=== PATIENT | female | born 1970 | race Caucasian/White ===

== ENCOUNTER 2020-01-11 13:42 | Inpatient (IN) | payer OTHER ==
[~2020-01-11] VITALS: Ht 157.5 cm; Wt 57.1 kg
--- NOTE | 2020-01-11 13:59 | NUR ---
PT ARRIVES VIA EMS, PER REPORT PT HAS BEEN HAVING INCREASING NUMBER OF FALLS RECENTLY, PT HAD FALLEN AT HOME UNKNOWN TIME/DATE AND WAS FOUND DOWN TODAY BY DAUGHTER. PT LIVES AT HOME ALONE. UNKNOWN TIME DOWN. ON ARRIVAL PT DROWSY, RESPONDING TO PAIN, ANSWERING SOME QUESTIONS APPROPRIATELY. GROSS NUERO INTACT, PUPILS EQUAL BUT SLUGGISH, PT WITH STRONG ETOH ODOR. PT ORIENTED TO SELF ONLY. LAST KNOW NORMAL TIME YESTERDAY AFTERNOON PER EMS REPORT FROM DAUGHTER. THIS RN ATTEMPTS TO CALL DAUGHTER WITH NUMBER PROVIDED TO VERIFY INFORMATION UNSUCCESSFUL AT THIS TIME WILL ATTEMPT AGAIN AT LATER TIME DUE TO PT CARE. PT IN C COLLAR, PT TO CARD MONITOR, BP, CONT PULSE OX. ERMD IN TO EVAL PT.
[2020-01-11 14:25] LABS: MEAN CORPUSCULAR HGB CONC 33.7 g/dL (32.4-35.8); MEAN CORPUSCULAR VOLUME 112.9 fL (80-100); MEAN PLATELET VOLUME 8.3 fL (7.4-10.4); PLATELET COUNT 267 x10^3/uL (130-400); RED BLOOD COUNT 3.88 x10^6/uL (3.82-5.3); RED CELL DISTRIBUTION WIDTH 12.8 % (9.6-15.2)
[2020-01-11 14:32] LABS: ALANINE AMINOTRANSFERASE 77 U/L (12-78); ALBUMIN 3.3 g/dL (3.4-5.0); ANION GAP 10 mmol/L (5-15); CALCIUM 8.1 mg/dL (8.5-10.1); CHLORIDE 108 mmol/L (98-107); CREATININE 0.42 mg/dL (0.55-1.02)
[2020-01-11 14:40] LABS: ALKALINE PHOSPHATASE 274 U/L (45-117); BILIRUBIN,TOTAL 0.8 mg/dL (0.2-1.0); TOTAL PROTEIN 7.3 g/dL (6.4-8.2)
[2020-01-11 14:41] LABS: BASOPHILS # (AUTO) 0.01 x10^3/uL (0-0.1); BASOPHILS % (AUTO) 0 % (0-1); EOSINOPHILS # (AUTO) 0.02 x10^3/uL (0-0.4); EOSINOPHILS % (AUTO) 0 % (1-7); LYMPHOCYTES % (AUTO) 27 % (22-44); MD MORPH REVIEW ONLY; MONOCYTES # (AUTO) 0.23 x10^3/uL (0.2-0.8); MONOCYTES % (AUTO) 6 % (2-9); NEUTROPHILS % (AUTO) 66 % (42-75); SALICYLATE LEVEL < 1.7 mg/dL (2.8-20.0)
[2020-01-11 14:43] LABS: <PLATELET ESTIMATE> ADEQUATE; <PLT MORPHOLOGY> NORMAL PLT MORPH
[2020-01-11 15:08] LABS: AMPHETAMINE SCREEN, URINE Negative (Negative); BARBITURATE SCREEN, URINE Negative (Negative); BENZODIAZEPINE SCREEN, URINE Negative (Negative); CANNABINOID SCREEN, URINE Negative (Negative); COCAINE SCREEN, URINE Negative (Negative); METHADONE SCREEN, URINE Negative (Negative); OPIATE SCREEN, URINE Negative (Negative)
--- NOTE | 2020-01-11 15:47 | NUR ---
PT JEFF 0.603, VALUE REPORTED TO ERMD, PT REMAINS RESPONSIVE, OCCASIONALLY SHOUTING OUT TO THE NURSE STATION "HEY" "HEY THERE". VSS, NAD NOTED
[2020-01-11] MEDS ORDERED: SODIUM CHLORIDE 0.9% 1,000 ML IV ONE (15:57)
[2020-01-11] MEDS ORDERED: SODIUM CHLORIDE FLUSH 10ML SYR IVF PRN (16:00)
--- NOTE | 2020-01-11 16:32 | NUR ---
SPOKE WITH PT MOTHER JORDON SHE WOULD LIKE TO BE CALLED TO KNOW WHERE PT IS ADMITTED [phone] PER PT MOTHER (NOT DAUGHTER) CLARIFIED PT WAS FOUND ON GROUND AT 1100 AM. SHE STATES SHE SPOKE WITH PT LAST NIGHT ON THE PHONE APPROX MIDNIGHT AND SHE "SOUNDED FINE" PT MOTHER NOT AWARE OF ETOH USE, STATES PT "USED TO DRINK"
--- NOTE | 2020-01-11 17:29 | NUR ---
POC DISCUSSED. PT AWAKE AND ALERT. PT SELF REMOVED HER IV. TIP INTACT
[2020-01-11] MEDS ORDERED: MELATONIN 5 MG TABLET PO PRN (18:30)
[2020-01-11] MEDS ORDERED: HYDROmorphone 2 MG/ML, 1ML IVPush PRN (18:30)
[2020-01-11] MEDS ORDERED: POTASSIUM CHLORIDE 40 MEQ in SODIUM CHLORIDE 0.9% 500 ML IV ONE (18:30)
[2020-01-11] MEDS: LORazepam 0.5MG TABLET PO SCH ×3 (18:30→21:05)
[2020-01-11] MEDS ORDERED: LABETALOL 5MG/ML, 20ML IVPush PRN (18:30)
[2020-01-11] MEDS ORDERED: TEMAZEPAM 15 MG CAPSULE PO PRN (18:30)
[2020-01-11] MEDS ORDERED: POLYETHYLENE GLYCOL 17 GM PACKET PO PRN (18:30)
[2020-01-11] MEDS ORDERED: LORazepam 2 MG/ML, 1ML IV PRN ×6 (18:30)
[2020-01-11] MEDS ORDERED: ONDANSETRON 2MG/ML, 2ML IVPush PRN (18:30)
[2020-01-11 19:25] LABS: FREE T4 (FREE THYROXINE) 1.13 ng/dL (0.76-1.46)
[2020-01-11] MEDS ORDERED: PLEASE ENTER ALLERGIES MC SCH (19:30)
[2020-01-11 20:20] VITALS: BP 122/81
[2020-01-11] MEDS: POTASSIUM CHLORIDE 20 MEQ, MAGNESIUM SULFATE 2 GM, THIAMINE 200 MG, MVI ADULT 10 ML, FO... IV SCH (21:04)
[2020-01-11] MEDS: ENOXAPARIN 40 MG/0.4 ML SQ SCH (21:05)
[2020-01-11] MEDS: PANTOPRAZOLE 40 MG IV IVPush SCH (21:05)
[2020-01-11 21:15] VITALS: BP 136/82
[2020-01-12 01:10] VITALS: BP 116/66
[2020-01-12 05:17] LABS: ALBUMIN 2.8 g/dL (3.4-5.0); ANION GAP 10 mmol/L (5-15); CALCIUM 7.6 mg/dL (8.5-10.1); CHLORIDE 108 mmol/L (98-107)
[2020-01-12 05:23] LABS: ALANINE AMINOTRANSFERASE 68 U/L (12-78); ALKALINE PHOSPHATASE 220 U/L (45-117); BILIRUBIN,TOTAL 0.8 mg/dL (0.2-1.0); CHOL/HDL RATIO 1.7; CHOLESTEROL, TOTAL 242 mg/dL (140-239); CREATININE 0.45 mg/dL (0.55-1.02); HDL CHOL % 60 % (28-40); HDL CHOLESTEROL (DIRECT) 145 mg/dL (40-60); LDL CHOLESTEROL,CALCULATED 82 mg/dL (54-169); LDL/HDL RATIO 0.6 (0.5-3.0); TOTAL PROTEIN 6.3 g/dL (6.4-8.2); TRIGLYCERIDES 73 mg/dL (50-200); VLDL CHOLESTEROL 15 mg/dL (0-25)
[2020-01-12 05:31] LABS: MEAN CORPUSCULAR HEMOGLOBIN 37.4 pg (27.0-34.8); MEAN CORPUSCULAR HGB CONC 33.1 g/dL (32.4-35.8); MEAN CORPUSCULAR VOLUME 112.8 fL (80-100); MEAN PLATELET VOLUME 8.6 fL (7.4-10.4); PLATELET COUNT 188 x10^3/uL (130-400); RED BLOOD COUNT 3.23 x10^6/uL (3.82-5.3); RED CELL DISTRIBUTION WIDTH 12.8 % (9.6-15.2)
[2020-01-12 06:26] LABS: BASOPHILS # (AUTO) 0.03 x10^3/uL (0-0.1); BASOPHILS % (AUTO) 1 % (0-1); EOSINOPHILS # (AUTO) 0.03 x10^3/uL (0-0.4); EOSINOPHILS % (AUTO) 1 % (1-7); LYMPHOCYTES # (AUTO) 0.72 x10^3/uL (1-3.4); LYMPHOCYTES % (AUTO) 19 % (22-44); MD SCAN; MONOCYTES # (AUTO) 0.29 x10^3/uL (0.2-0.8); MONOCYTES % (AUTO) 8 % (2-9); NEUTROPHILS # (AUTO) 2.63 x10^3/uL (1.8-6.8); NEUTROPHILS % (AUTO) 71 % (42-75)
[2020-01-12 06:44] VITALS: BP 124/87
[2020-01-12] MEDS: PANTOPRAZOLE 40 MG IV IVPush SCH (07:43)
[2020-01-12] MEDS: MULTIVITAMINS/MINERALS TABLET PO SCH (07:43)
[2020-01-12] MEDS: LORazepam 0.5MG TABLET PO SCH ×3 (07:43→20:50)
[2020-01-12] MEDS: SENNA/DOCUSATE TABLET PO SCH (07:43)
[2020-01-12] MEDS ORDERED: SODIUM PHOSPHATE 30 MMOL in SODIUM CHLORIDE 0.9% 500 ML IV ONE (08:00)
[2020-01-12] MEDS ORDERED: POTASSIUM CHLORIDE 20 MEQ TAB.ER.PRT PO ONE (08:00)
[2020-01-12] MEDS: THIAMINE 100MG TABLET PO SCH (08:03)
[2020-01-12] MEDS: FOLIC ACID 1 MG TABLET PO SCH (08:03)
[2020-01-12] MEDS: ONDANSETRON ODT 4 MG PO PRN (08:03)
[2020-01-12] MEDS: CHLORDIAZEPOXIDE 25 MG CAPSULE PO SCH ×3 (10:45→20:50)
[2020-01-12] MEDS: ACETAMINOPHEN 325 MG TABLET PO PRN ×2 (10:45→15:28)
[2020-01-12 13:33] VITALS: BP 130/90
[2020-01-12 15:51] LABS: HCG UR SG 1.019 (1.003-1.030)
[2020-01-12 15:53] LABS: MICROSCOPIC INDICATED
[2020-01-12] MEDS: ENOXAPARIN 40 MG/0.4 ML SQ SCH (19:46)
[2020-01-12] MEDS: POTASSIUM CHLORIDE 20 MEQ, MAGNESIUM SULFATE 2 GM, THIAMINE 200 MG, MVI ADULT 10 ML, FO... IV SCH (19:46)
[2020-01-12 20:52] VITALS: BP 149/93
[2020-01-13 02:51] VITALS: BP 146/69
[2020-01-13 05:06] LABS: ALBUMIN 2.9 g/dL (3.4-5.0); ANION GAP 9 mmol/L (5-15); CALCIUM 8.5 mg/dL (8.5-10.1); CHLORIDE 107 mmol/L (98-107)
[2020-01-13 05:09] LABS: ALANINE AMINOTRANSFERASE 65 U/L (12-78); ALKALINE PHOSPHATASE 229 U/L (45-117); BILIRUBIN,TOTAL 1.5 mg/dL (0.2-1.0); CREATININE 0.51 mg/dL (0.55-1.02); TOTAL PROTEIN 6.2 g/dL (6.4-8.2)
[2020-01-13] MEDS ORDERED: PANTOPRAZOLE 40MG TABLET PO SCH (06:00)
[2020-01-13] MEDS: ACETAMINOPHEN 325 MG TABLET PO PRN (06:28)
[2020-01-13] MEDS: ONDANSETRON ODT 4 MG PO PRN (06:28)
[2020-01-13 07:22] VITALS: BP 147/99
[2020-01-13] MEDS ORDERED: THIA100T67 PO (08:18)
[2020-01-13] MEDS ORDERED: CHLO10CA6 PO (08:18)
[2020-01-13] MEDS ORDERED: FOLI-17 PO (08:18)
[2020-01-13] MEDS: SENNA/DOCUSATE TABLET PO SCH (09:00)
[2020-01-13] MEDS: MULTIVITAMINS/MINERALS TABLET PO SCH (10:52)
[2020-01-13] MEDS: THIAMINE 100MG TABLET PO SCH (10:53)
[2020-01-13] MEDS: CHLORDIAZEPOXIDE 25 MG CAPSULE PO SCH (10:53)
[2020-01-13] MEDS: LORazepam 0.5MG TABLET PO SCH (10:53)
[2020-01-13] MEDS: FOLIC ACID 1 MG TABLET PO SCH (10:53)
== END 2020-01-13 12:37 | disposition home or self-care (01) | DRG 392 ==
LOC: ED 16:06 → EDIP 16:10 → 4WST 19:01 → DCLOUNGE 01-13 12:21
PROVIDERS: ADMIT Internal Medicine; ATTEND Internal Medicine Infectious Disease
DX: K29.20 Alcoholic gastritis without bleeding (principal); F10.229 Alcohol dependence with intoxication, unspecified; D75.89 Other specified diseases of blood and blood-forming organs; E86.0 Dehydration; F31.9 Bipolar disorder, unspecified; Y90.8 Blood alcohol level of 240 mg/100 ml or more; M48.02 Spinal stenosis, cervical region; R74.0 Nonspecific elevation of levels of transaminase and lactic acid dehydrogenase [LDH]; R74.8 Abnormal levels of other serum enzymes; M54.2 Cervicalgia; Z80.3 Family history of malignant neoplasm of breast; Z81.1 Family history of alcohol abuse and dependence; Z81.8 Family history of other mental and behavioral disorders; Z82.0 Family history of epilepsy and other diseases of the nervous system; Z91.14 Patient's other noncompliance with medication regimen; Z84.89 Family history of other specified conditions; Z91.041 Radiographic dye allergy status; Z79.899 Other long term (current) drug therapy
CPT/HCPCS: 36415; 99285; J7042; 70450; 71045; 72125; 80053; 80061; 80074; 80307; 81001; 81025; 82140; 82607; 83690; 83735; 84100; 84439; 84443; 85025; 87077; 87086; 87186; 93005; 96361; 96365; 96366; 96375; 96376; G0378; J1650; J2405; J3411; J3475; J3480; Q0162; C9113; J2060; J7040

== ENCOUNTER 2020-01-27 00:49 | Emergency (ER) | payer MEDICAID, OTHER ==
[~2020-01-27] VITALS: Ht 165.1 cm; Wt 80.0 kg
[~2020-01-27 00:49] MED LIST: CHLO10CA6 PO; FOLI-17 PO; THIA100T67 PO
--- NOTE | 2020-01-27 00:57 | NUR ---
PATIENT STATED THAT SHE HAS BEEN A DAILY DRINKER SINCE SHE WAS A TEENAGER.
--- NOTE | 2020-01-27 01:14 | NUR ---
PATIENT STATED THAT SHE WAS UPSET THAT HER NECKLACE WAS NOT ON. THE PATIENT DID NOT COME INTO THE ER. WHEN ASKING THE PATIENT WHERE SHE THOUGHT IT WAS, SHE STATED "[facility]".
[2020-01-27 01:15] LABS: MEAN CORPUSCULAR HEMOGLOBIN 38.1 pg (27.0-34.8); MEAN CORPUSCULAR HGB CONC 33.8 g/dL (32.4-35.8); MEAN CORPUSCULAR VOLUME 112.9 fL (80-100); MEAN PLATELET VOLUME 8.3 fL (7.4-10.4); PLATELET COUNT 173 x10^3/uL (130-400); RED BLOOD COUNT 3.55 x10^6/uL (3.82-5.3); RED CELL DISTRIBUTION WIDTH 12.8 % (9.6-15.2)
--- NOTE | 2020-01-27 01:22 | NUR ---
EMERGENCY CONTACT ALPHONSO TONG [phone]
[2020-01-27 01:24] LABS: ALANINE AMINOTRANSFERASE 58 U/L (12-78); ALBUMIN 3.2 g/dL (3.4-5.0); ANION GAP 10 mmol/L (5-15); CALCIUM 7.8 mg/dL (8.5-10.1); CHLORIDE 112 mmol/L (98-107)
[2020-01-27 01:25] LABS: SALICYLATE LEVEL < 1.7 mg/dL (2.8-20.0)
[2020-01-27 01:29] LABS: ALKALINE PHOSPHATASE 204 U/L (45-117); BILIRUBIN,TOTAL 0.4 mg/dL (0.2-1.0); CREATININE 0.47 mg/dL (0.55-1.02); TOTAL PROTEIN 7.2 g/dL (6.4-8.2)
--- NOTE | 2020-01-27 01:49 | NUR ---
STRAIGHT CATH PERFORMED, PT TOLERATED WELL. UA WALKED TO LAB.
[2020-01-27 02:09] LABS: AMPHETAMINE SCREEN, URINE Negative (Negative); BARBITURATE SCREEN, URINE Negative (Negative); BENZODIAZEPINE SCREEN, URINE Positive (Negative); CANNABINOID SCREEN, URINE Negative (Negative); COCAINE SCREEN, URINE Negative (Negative); METHADONE SCREEN, URINE Negative (Negative); OPIATE SCREEN, URINE Negative (Negative)
[2020-01-27 02:10] LABS: BASOPHILS # (AUTO) 0.03 x10^3/uL (0-0.1); BASOPHILS % (AUTO) 1 % (0-1); EOSINOPHILS # (AUTO) 0.15 x10^3/uL (0-0.4); EOSINOPHILS % (AUTO) 3 % (1-7); LYMPHOCYTES # (AUTO) 1.18 x10^3/uL (1-3.4); LYMPHOCYTES % (AUTO) 25 % (22-44); MD SCAN; MONOCYTES # (AUTO) 0.64 x10^3/uL (0.2-0.8); MONOCYTES % (AUTO) 14 % (2-9); NEUTROPHILS # (AUTO) 2.68 x10^3/uL (1.8-6.8); NEUTROPHILS % (AUTO) 57 % (42-75)
[2020-01-27 02:14] LABS: MICROSCOPIC INDICATED
[2020-01-27] MEDS ORDERED: CIPROFLOXACIN 500 MG TABLET PO ONE (03:30)
--- NOTE | 2020-01-27 03:52 | NUR ---
PT UPDATED ON POC, MONITORING IN PLACE, CALL LIGHT WITHIN REACH, PT DENIES NEEDS AT THIS TIME.
[2020-01-27] MEDS ORDERED: CIPROFLOXACIN 500 MG TABLET ONE (03:54)
--- NOTE | 2020-01-27 04:02 | NUR ---
PT MEDICATED PER MAR, MONITORING IN PLACE.
[2020-01-27 05:26] VITALS: BP 91/67
--- NOTE | 2020-01-27 05:27 | NUR ---
PT PLACED BACK ON MONITORING, NASAL CANNULA REPLACED, PT UPDATED ON POC. REQUESTING CALL TO FAMILY AT THIS TIME AFTER REFUSING TO HAVE ANYONE KNOW SHE IS HERE. *EMERGENCY CONTACT* MILENA, BOYFRIEND [phone]
--- NOTE | 2020-01-27 05:30 | NUR ---
PT ABLE TO AMBUALTE TO AND FROM BATHROOM WITH STEADY.
--- NOTE | 2020-01-27 06:53 | NUR ---
REPORT GIVEN TO GRZEGORZ OSMAN.
--- NOTE | 2020-01-27 08:11 | NUR ---
Pt ambulatory around room with steady gait, requesting dc. Pt A&O x4, able to dress self fully. Attempted to contact pt's boyfriend to come pick her up. No answer x2. Called pt's mother, reported that pt ready for dc and would be given a taxi voucher to take pt home. Pt refusing voucher, states she will contact her boyfriend and have him come pick her up. Pt ambulatory to phone, able to get in touch with her boyfriend who states he is coming to pick pt up. Pt states she would like to wait in the lobby. Pt ambulatory out of unit with steady gait.
== END 2020-01-27 08:18 | disposition home or self-care (01) ==
LOC: ED 02:17
DX: N30.00 Acute cystitis without hematuria (principal); F10.220 Alcohol dependence with intoxication, uncomplicated; R00.0 Tachycardia, unspecified; Y90.9 Presence of alcohol in blood, level not specified
CPT/HCPCS: 36415; 80053; 80307; 81001; 84703; 85025; 87077; 87086; 87186; 93005; 99284

== ENCOUNTER 2020-03-06 04:05 | Emergency (ER) | payer MEDICAID ==
[~2020-03-06] VITALS: Ht 160 cm; Wt 55.0 kg
[2020-03-06] MEDS ORDERED: ONDANSETRON 2MG/ML, 2ML IVPush ONE (05:00)
[2020-03-06] MEDS ORDERED: FAMOTIDINE 20 MG/2 ML IV ONE (05:00)
[2020-03-06] MEDS ORDERED: SODIUM CHLORIDE 0.9% 1,000ML IVBOLUS ONE (05:00)
[2020-03-06] MEDS ORDERED: FAMOTIDINE 20 MG/2 ML ONE (05:05)
[2020-03-06] MEDS ORDERED: ONDANSETRON 2MG/ML, 2ML ONE (05:05)
[2020-03-06 05:57] LABS: BASOPHILS % (AUTO) 1 % (0-1); EOSINOPHILS % (AUTO) 0 % (1-7); LYMPHOCYTES % (AUTO) 10 % (22-44); MEAN CORPUSCULAR HEMOGLOBIN 36.8 pg (27.0-34.8); MEAN PLATELET VOLUME 8.5 fL (7.4-10.4); MONOCYTES % (AUTO) 9 % (2-9); NEUTROPHILS % (AUTO) 79 % (42-75); PLATELET COUNT 155 x10^3/uL (130-400); RED BLOOD COUNT 3.53 x10^6/uL (3.82-5.3); RED CELL DISTRIBUTION WIDTH 13.6 % (9.6-15.2)
[2020-03-06 06:10] LABS: ALANINE AMINOTRANSFERASE 60 U/L (12-78); ALBUMIN 3.3 g/dL (3.4-5.0); ANION GAP 10 mmol/L (5-15); CALCIUM 8.6 mg/dL (8.5-10.1); CHLORIDE 101 mmol/L (98-107); CREATININE 0.44 mg/dL (0.55-1.02)
[2020-03-06 06:14] LABS: ALKALINE PHOSPHATASE 226 U/L (45-117); BILIRUBIN,TOTAL 1.9 mg/dL (0.2-1.0); TROPONIN I < 0.015 ng/mL (0.000-0.045)
[2020-03-06 06:22] LABS: <PLATELET ESTIMATE> ADEQUATE; <PLT MORPHOLOGY> NORMAL PLT MORPH; MD MORPH REVIEW ONLY
[2020-03-06] MEDS ORDERED: LORazepam 2 MG/ML, 1ML ONE (06:54)
[2020-03-06] MEDS ORDERED: LORazepam 2 MG/ML, 1ML IVPush ONE ×2 (07:00→07:30)
--- NOTE | 2020-03-06 07:05 | NUR ---
report from galilea botello. as
[2020-03-06] MEDS ORDERED: LORA-445 PO (07:09)
[2020-03-06 07:11] LABS: MICROSCOPIC INDICATED
--- NOTE | 2020-03-06 07:16 | NUR ---
pt has hx etoh abuse, does not readily admit to. old med rec shows librium/folic acid. given 2 mg ativan per verbal order (was 1 mg, then changed per law who was in room). pt sts abd/nausea improved. st 100s. bp stable. call rodriguez/[facility] prec[facility]. as
[2020-03-06] MEDS ORDERED: CHLORDIAZEPOXIDE 10 MG CAPSULE PO ONE (08:00)
[2020-03-06] MEDS ORDERED: FOSFOMYCIN 3 GM PACKET PO ONE (08:00)
--- NOTE | 2020-03-06 08:20 | NUR ---
right iv infiltrated, removed, warm compress applied. law aware. will order po librium. plan dc and meds for uti as
[2020-03-06] MEDS ORDERED: CHLORDIAZEPOXIDE 10 MG CAPSULE ONE (08:27)
[2020-03-06] MEDS ORDERED: FOSFOMYCIN 3 GM PACKET ONE (08:28)
[2020-03-06 08:35] VITALS: BP 130/86
--- NOTE | 2020-03-06 09:01 | NUR ---
pt is covered in bruises L arm, bilat legs. denies abuse. sts feels safe at home. offered resources on etoh withdrawal/addiction. pt declined "i already have resources at home". encouraged to f/u outpt. as
== END 2020-03-06 09:04 | disposition home or self-care (01) ==
LOC: ED 06:11
DX: N30.00 Acute cystitis without hematuria (principal); K29.20 Alcoholic gastritis without bleeding; F10.10 Alcohol abuse, uncomplicated; I48.91 Unspecified atrial fibrillation; Y90.9 Presence of alcohol in blood, level not specified
CPT/HCPCS: 36415; 74022; 80053; 81001; 83690; 84484; 85025; 87077; 87086; 93005; 96361; 96374; 96376; 99285; J2060; J2405; J3490; J7030; 87186

== ENCOUNTER 2020-04-05 19:28 | Inpatient (IN) | payer MEDICAID ==
[~2020-04-05] VITALS: Ht 160 cm; Wt 63.8 kg
[~2020-04-05 19:28] MED LIST changes: +LORA-445 PO
--- NOTE | 2020-04-05 19:40 | NUR ---
PT BIB [facility] FOR N/V, ANXIETY, FALLS AND WEAKNESS. PT HAS BEEN VOMITING SINCE 8 AM. 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 PT IS TREMULOUS ON ARIVAL AND TACHYCARDIC. PT IS A DAILY DRINKER AND HASNT HAD A DRINK SINCE YESTERDAY. PT PLACED ON MONITORS. CHILDREN'S LITERATURE PROFESSOR AT BEDSIDE
[2020-04-05] MEDS ORDERED: LORazepam 2 MG/ML, 1ML ONE ×2 (19:47→21:50)
--- NOTE | 2020-04-05 19:53 | NUR ---
FIRST CONTACT W PT, MEDICATED WITH 2 ATIVAN. ON MONITOR, CONT PULSE OX. RAILS UP, BED LOW, CALL HARDIN IN REACH. AIDET PROVIDED.
[2020-04-05] MEDS ORDERED: ONDANSETRON 2MG/ML, 2ML IVPush ONE (20:00)
[2020-04-05] MEDS ORDERED: SODIUM CHLORIDE FLUSH 10ML SYR IVF ONE (20:00)
[2020-04-05] MEDS ORDERED: MAGNESIUM SULFATE 1 GM, THIAMINE 100 MG, FOLIC ACID 1 MG, MVI ADULT 10 ML in SODIUM CHL... IV ONE (20:00)
[2020-04-05] MEDS ORDERED: LORazepam 2 MG/ML, 1ML IVPush ONE ×3 (20:00→23:00)
[2020-04-05] MEDS ORDERED: SODIUM CHLORIDE 0.9% 1,000ML IVBOLUS ONE (20:00)
[2020-04-05] MEDS ORDERED: ONDANSETRON 2MG/ML, 2ML ONE (20:02)
[2020-04-05 20:33] LABS: MEAN CORPUSCULAR HEMOGLOBIN 37.3 pg (27.0-34.8); MEAN CORPUSCULAR HGB CONC 33.9 g/dL (32.4-35.8); MEAN PLATELET VOLUME 8.7 fL (7.4-10.4); PLATELET COUNT 123 x10^3/uL (130-400); RED BLOOD COUNT 2.64 x10^6/uL (3.82-5.3); RED CELL DISTRIBUTION WIDTH 14.7 % (9.6-15.2)
[2020-04-05 20:44] LABS: ALANINE AMINOTRANSFERASE 48 U/L (12-78); ALBUMIN 2.9 g/dL (3.4-5.0); ANION GAP 14 mmol/L (5-15); CALCIUM 7.8 mg/dL (8.5-10.1); CHLORIDE 105 mmol/L (98-107); CREATININE 0.75 mg/dL (0.55-1.02)
[2020-04-05 20:47] LABS: ALKALINE PHOSPHATASE 332 U/L (45-117); BILIRUBIN,TOTAL 1.9 mg/dL (0.2-1.0); TOTAL PROTEIN 6.2 g/dL (6.4-8.2)
[2020-04-05 21:12] LABS: MD YES
[2020-04-05 21:13] LABS: ANISOCYTOSIS 1+; BAND#(MANUAL) 0.25 x10^3/uL; BANDS%(MANUAL) 5 % (0-7); LYMPHS% (MANUAL) 2 % (22-44); MONOS% (MANUAL) 4 % (2-9); OVALOCYTES 1+; POLYCHROMASIA 1+; SEG#(MANUAL) 4.45 x10^3/uL (1.8-6.8); SEGS% (MANUAL) 89 % (42-75); STOMATOCYTES 1+
--- NOTE | 2020-04-05 21:13 | NUR ---
IVF ON PUMP STARTED
[2020-04-05 21:14] LABS: <PLATELET ESTIMATE> DECREASED; <PLT MORPHOLOGY> NORMAL PLT MORPH; LARGE PLATELETS 1+
--- NOTE | 2020-04-05 21:39 | NUR ---
STRAIGHT CATH PERFORMED FOR STERILE UA
--- NOTE | 2020-04-05 21:43 | NUR ---
Patient still tremulous and techycardic in 120's with nausea, ERP notified. Addendum: 04/05/20 at 2144 by NOLAN tachycardic*
[2020-04-05] MEDS ORDERED: PROMETHAZINE 25 MG/ML, 1ML ONE (21:50)
[2020-04-05 21:58] LABS: MICROSCOPIC INDICATED
[2020-04-05] MEDS ORDERED: PROMETHAZINE 25 MG/ML, 1ML IM ONE (22:00)
--- NOTE | 2020-04-05 22:19 | NUR ---
Patient medicated per emar
--- NOTE | 2020-04-05 22:45 | NUR ---
Kim Celeste (mother): [phone] Patient does not want any medical information given to mother. Okay to update on admission or discharge
[2020-04-05] MEDS ORDERED: DEXTROSE 50%, 50ML SYRINGE ONE (22:55)
[2020-04-05] MEDS ORDERED: DEXTROSE 50%, 50ML SYRINGE IVPush ONE (23:00)
--- NOTE | 2020-04-05 23:30 | NUR ---
PATIENT STILL TREMULOUS, TACHYCARDIC IN 130'S ERP AWARE.
[2020-04-06] MEDS ORDERED: LABETALOL 5MG/ML, 20ML IVPush PRN
[2020-04-06] MEDS ORDERED: LORazepam 0.5MG TABLET PO PRN
[2020-04-06] MEDS ORDERED: PROMETHAZINE 25 MG/ML, 1ML IM PRN
[2020-04-06] MEDS ORDERED: ONDANSETRON ODT 4 MG PO PRN
[2020-04-06] MEDS ORDERED: ENOXAPARIN 40 MG/0.4 ML SQ SCH
[2020-04-06] MEDS ORDERED: CHLORDIAZEPOXIDE 10 MG CAPSULE PO SCH
[2020-04-06] MEDS ORDERED: ONDANSETRON 2MG/ML, 2ML IVPush PRN
[2020-04-06] MEDS ORDERED: LORazepam 2 MG/ML, 1ML IV PRN ×3
[2020-04-06] MEDS ORDERED: LORazepam 1MG TABLET PO PRN ×4
[2020-04-06] MEDS ORDERED: BISACODYL 10 MG SUPP PR PRN
[2020-04-06] MEDS ORDERED: LORazepam 2 MG/ML, 1ML ONE ×6 (00:01→05:18)
--- NOTE | 2020-04-06 00:10 | NUR ---
PATIENT HAVING AUDITORY AND VISUAL HALLUCINATIONS, CONTINUOUS TREMORS AT REST, ADMITTING MD NOTIFIED. THIS RN TO GIVE ADDITIONAL ATIVAN, THEN REASSESS.
[2020-04-06] MEDS: LORazepam 2 MG/ML, 1ML IV PRN ×4 (00:30→03:21)
--- NOTE | 2020-04-06 00:40 | NUR ---
PATIENT STILL CONTINUALLY TREMULOUS, STILL HAVING VISUAL AND AUDITORY HALLUCINATIONS. ALL MONITORING IN PLACE, SINUS TACHYCARDIA PRESENT AT 133 BPM.
[2020-04-06 00:52] LABS: FREE T4 (FREE THYROXINE) 0.95 ng/dL (0.76-1.46)
--- NOTE | 2020-04-06 00:56 | NUR ---
CIWA ASSESSMENT COMPLETED, NO CHANGE FROM PRIOR ASSESSMENT
[2020-04-06] MEDS ORDERED: PHENOBARBITAL SODIUM 130 MG/ML, 1ML IV ONE (01:30)
--- NOTE | 2020-04-06 01:40 | NUR ---
KALPESH AT BEDSIDE FOR RECHECK.
--- NOTE | 2020-04-06 01:40 | NUR ---
BEDSHEETS CHANGED, NO CHANGE IN CIWA SCALE AT THIS TIME, KALPESH AND SARAH AT BEDSIDE TO DISCUSS POC. PATIENT TO BE UPGRADED TO CCU, PER MD TEAM, PATIENT TO GET PHENOBARBITAL SODIUM FOR TREMORS/TACHYCARDIA/HALLUCINATIONS, AND CONTINUE WITH ATIVAN CIWA PROTOCOL DIRECTED. THIS RN WENT TO PHARMACY TO DROP OFF PHARMACY SLIP, PHARMACIST STATES EITHER PHENOBARBITAL PROTOCOL MUST BE FOLLOWED AND STOP ATIVAN CIWA PROTOCOL, OR CONTINUE WITH ATIVAN AND DO NOT GIVE PHENOBARBITAL. THIS RN EXPLAINED TO PHARMACIST CONVERSATION BETWEEN ADMITTING AND ED DOCTORS ABOUT PLAN, PHARMACIST TO CALL KALPESH ABOUT PLAN OF CARE AND GIVING PHENOBARBITAL IN ADDITION TO ATIVAN CIWA PROTOCOL.
--- NOTE | 2020-04-06 01:41 | NUR ---
IVF INFUSION STOPPED PER MD ORDERS, AND WILL SWITCH TO IV INFUSION WITH D5W FOR BGL CONTROL Addendum: 04/06/20 at 0218 by NOLAN APPROXIMATELY 450ML INFUSED OF ED ORDER FOR IV INFUSION
--- NOTE | 2020-04-06 01:47 | NUR ---
TASK RN: PT CURRENTLY RESTING ON GURNEY NO ACUTE DISTRESS NOTED AT THIS TIME PT HAS NOTICEABLE TREMORS. PT AO X SELF, CAN STATE SHE IS IN [place], [place] AND THAT IT IS M[place]. PT BELIEVES SHE IS AT HOME OR A HOTEL AND I AM HER FRIEND. PT ANSWERS DIRECT QUESTIONS OF MEDICAL HISTORY APPROPRIATELY. PT ON CONT BP, CARDIAC AND SPO2 MONITORS. NST 110'S-120'S. RR EVEEN AND UNLABORED. CALL LIGHT WITHIN REACH.
--- NOTE | 2020-04-06 02:06 | NUR ---
PATIENT MEDICATED PER EMAR FOR CIWA 23
[2020-04-06] MEDS: POTASSIUM CHLORIDE 20 MEQ, MAGNESIUM SULFATE 2 GM, THIAMINE 200 MG, MVI ADULT 10 ML, FO... IV SCH ×3 (02:16→20:32)
--- NOTE | 2020-04-06 02:31 | NUR ---
PATIENT CONTINUALLY TRYING TO GET OUT OF BED, ANXIETY AND AGITATION GETTING WORSE AT THIS TIME. A&OX4 AT THIS TIME, ABLE TO ANSWER QUESTIONS APPROPRIATELY, THEN WILL STATE "HOW'D YOU GET IN TO MY HOUSE, I NEED TO GIVE YOU A SPARE GASCA". MONITORING IN PLACE, VSS, CIWA REASSESSED AT THIS TIME
--- NOTE | 2020-04-06 03:02 | NUR ---
Report given to GRZEGORZ Howard. Plan of care discussed.
--- NOTE | 2020-04-06 03:15 | NUR ---
Assumed care of pt. Moved pt to hospital bed with previous shift RN. BS 86. Placed on tele/continuous O2 monitoring. Bed low, side rails up, call rodriguez within reach
--- NOTE | 2020-04-06 03:22 | NUR ---
CIWA 21. Medicated with 3 mg Ativan IV per order. See eMAR for additional details
[2020-04-06] MEDS ORDERED: PROMETHAZINE 25 MG/ML, 1ML ONE (03:34)
--- NOTE | 2020-04-06 03:49 | NUR ---
Increased agitation/hallucinations. Hospitalist/chargeback analyst aware. Plan to d/c ativan and start phenobarbital.
--- NOTE | 2020-04-06 03:57 | NUR ---
Pt continuing to try to get OOB. Continued worsening auditory/visual hallucinations. Unable to answer questions appropriately. Awaiting order for phenobarb
--- NOTE | 2020-04-06 04:11 | NUR ---
Hospitalist states he is dealing with critical pt and unable to put phenobarb order in at this time. Pt status unchanged
--- NOTE | 2020-04-06 05:00 | NUR ---
Pt continues to try to get OOB. Remains disoriented to person/place/situation. Incontinent of significant amount of loose stool. Changed linens. Depends applied. Bed low, side rails up, call rodriguez within reach
[2020-04-06 05:15] LABS: RED BLOOD COUNT 2.88 x10^6/uL (3.82-5.3)
--- NOTE | 2020-04-06 05:23 | NUR ---
BRANDIE 31. Hospitalist aware. Medicated with 4 mg Ativan per order and conversation with hospitalist. Provider aware of amount of ativan given
[2020-04-06 05:24] LABS: MEAN CORPUSCULAR HEMOGLOBIN 36.9 pg (27.0-34.8); MEAN CORPUSCULAR HGB CONC 33.4 g/dL (32.4-35.8); MEAN PLATELET VOLUME 8.6 fL (7.4-10.4); PLATELET COUNT 114 x10^3/uL (130-400); RED CELL DISTRIBUTION WIDTH 15.6 % (9.6-15.2)
[2020-04-06 05:29] LABS: ALANINE AMINOTRANSFERASE 49 U/L (12-78); ANION GAP 8 mmol/L (5-15); CALCIUM 8.3 mg/dL (8.5-10.1); CHLORIDE 108 mmol/L (98-107); CHOLESTEROL, TOTAL 227 mg/dL (140-239); CREATININE 0.55 mg/dL (0.55-1.02)
--- NOTE | 2020-04-06 05:30 | NUR ---
BG 76. Provider aware. Verbal order to increase rate of banana bag with dextrose to 150 mL/hr
[2020-04-06 05:31] LABS: ALKALINE PHOSPHATASE 349 U/L (45-117); BILIRUBIN,TOTAL 1.5 mg/dL (0.2-1.0); CHOL/HDL RATIO 1.6; HDL CHOL % 64 % (28-40); HDL CHOLESTEROL (DIRECT) 146 mg/dL (40-60); LDL CHOLESTEROL,CALCULATED 68 mg/dL (54-169); LDL/HDL RATIO 0.5 (0.5-3.0); TOTAL PROTEIN 6.3 g/dL (6.4-8.2); TRIGLYCERIDES 67 mg/dL (50-200); VLDL CHOLESTEROL 13 mg/dL (0-25)
[2020-04-06 06:05] LABS: MD YES
[2020-04-06 06:09] LABS: ANISOCYTOSIS 1+; EOS#(MANUAL) 0.04 x10^3/uL (0.0-0.4); EOS% (MANUAL) 1 % (1-7); LYMPH#(MANUAL) 0.49 x10^3/uL (1-3.4); LYMPHS% (MANUAL) 13 % (22-44); MONOS#(MANUAL) 0.23 x10^3/uL (0.3-2.7); MONOS% (MANUAL) 6 % (2-9); OVALOCYTES 1+; POLYCHROMASIA 1+; SEG#(MANUAL) 3.04 x10^3/uL (1.8-6.8); SEGS% (MANUAL) 80 % (42-75)
[2020-04-06 06:10] LABS: <PLATELET ESTIMATE> DECREASED; <PLT MORPHOLOGY> NORMAL PLT MORPH
[2020-04-06] MEDS ORDERED: PHENOBARBITAL SODIUM IV ONE (06:30)
[2020-04-06] MEDS ORDERED: SODIUM CHLORIDE 0.9% IV ONE (06:30)
[2020-04-06] MEDS ORDERED: PHENOBARBITAL ETOH DETOX PER PHARMACY MC PRN (06:30)
[2020-04-06 06:38] LABS: MICROSCOPIC INDICATED
[2020-04-06] MEDS ORDERED: ZIPRASIDONE 20 MG INJ IM ONE ×3 (06:38→14:51)
--- NOTE | 2020-04-06 06:40 | NUR ---
Conversation with hospitalist r/t care overnight. Hospitalist aware of amount of ativan given with minimal effect. Plan for phenobarbital. Mental status unchanged. Continues to have frequent auditory/visual hallucinations. Continues to try to get OOB frequently. Remains on continuous tele/end tidal monitoring. Bed alarm on, bed low, side rails up
[2020-04-06] MEDS: ZIPRASIDONE 20 MG INJ IM PRN ×3 (06:55→22:19)
--- NOTE | 2020-04-06 07:02 | NUR ---
REPORT FROM DUGLAS, BEDSIDE. PT RESTING, VSS. BED ALARM IN PLACE,
--- NOTE | 2020-04-06 08:11 | NUR ---
PT RESTING, VSS
--- NOTE | 2020-04-06 08:29 | NUR ---
cardiac rhythm strip printed and placed on chart.
[2020-04-06] MEDS ORDERED: MORPHINE SULFATE 4 MG/ML, 1ML ONE ×2 (08:54→11:06)
[2020-04-06] MEDS: morphine SULFATE 10 MG/ML, 1ML IVPush PRN ×2 (08:56→11:08)
--- NOTE | 2020-04-06 09:01 | NUR ---
PT BECOMING AGITATED, TREMULOUS, TACHY 140-150S. DISCUSSED W MD CASTELLON POC. OK TO GIVE GEODON 10 MG AND MORPHINE.
--- NOTE | 2020-04-06 09:25 | NUR ---
PT IS LESS RESTLESS AND TREMULOUS. PT SLEEPING, VSS
[2020-04-06] MEDS ORDERED: MAGNESIUM SULFATE PMX 4GM/100M 100 ML IVPB ONE (11:00)
[2020-04-06] MEDS ORDERED: THIAMINE 200 MG in SODIUM CHLORIDE 0.9% 50 ML IV SCH (11:00)
[2020-04-06] MEDS ORDERED: CEFTRIAXONE PMX 1GM/50ML 50 ML ONE (11:00)
[2020-04-06] MEDS ORDERED: POTASSIUM CHLORIDE 20 MEQ in SODIUM CHLORIDE 0.9% 250 ML IV ONE (11:00)
[2020-04-06] MEDS ORDERED: MAGNESIUM SULFATE PMX 4GM/100M 100 ML ONE (11:01)
[2020-04-06] MEDS ORDERED: ENOXAPARIN 40 MG/0.4 ML ONE (11:02)
[2020-04-06] MEDS: ENOXAPARIN 40 MG/0.4 ML SQ SCH (11:08)
[2020-04-06] MEDS: CEFTRIAXONE PMX 1GM/50ML 50 ML IV SCH (11:09)
[2020-04-06 12:20] LABS: INTERNATIONAL NORMALIZED RATIO 1.22 (0.93-1.1); PROTHROMBIN TIME 12.9 Seconds (9.6-11.5)
--- NOTE | 2020-04-06 12:21 | NUR ---
PT REPOSITIONED, NEW LINENS. PT CONFUSED, AROUSES EASILY, TREMORS DECREASED WHILE SLEEPING. VSS.
--- NOTE | 2020-04-06 12:39 | NUR ---
cardiac rhythm strip printed and placed on chart
[2020-04-06] MEDS ORDERED: POTASSIUM PHOSPHATE 22 MEQ in SODIUM CHLORIDE 0.9% 500 ML IV ONE (13:00)
--- NOTE | 2020-04-06 13:34 | NUR ---
REPORT RECEIVED FROM GRZEGORZ MARIA. ASSUMED CARE. PT RESTING IN [facility]. REMAINS TACHYCARDIC. NAD.
--- NOTE | 2020-04-06 13:39 | NUR ---
PT TRIED TO GET UP OUT OF BED. TOLD PT TO TRY AND RELAX AND REST IN THE BED. PT SAID "OK"
[2020-04-06] MEDS: PHENOBARBITAL SODIUM 65 MG/ML, 1ML IM SCH (13:55)
[2020-04-06] MEDS ORDERED: LABETALOL 20 MG/4 ML ONE (15:42)
--- NOTE | 2020-04-06 15:48 | NUR ---
PT DIASTOLIC BP HIGH. PT MEDICATED PER JUL.
[2020-04-06 17:53] VITALS: BP 136/96
[2020-04-06] MEDS: OXYcodone IR 5MG TABLET PO PRN (20:04)
[2020-04-07] MEDS: PHENOBARBITAL SODIUM 65 MG/ML, 1ML IM SCH ×2 (01:41→15:30)
[2020-04-07] MEDS: ZIPRASIDONE 20 MG INJ IM PRN (02:34)
[2020-04-07 04:00] VITALS: BP 146/93
[2020-04-07 04:36] LABS: BASOPHILS % (AUTO) 1 % (0-1); EOSINOPHILS % (AUTO) 2 % (1-7); LYMPHOCYTES % (AUTO) 12 % (22-44); MEAN CORPUSCULAR HEMOGLOBIN 36.9 pg (27.0-34.8); MEAN CORPUSCULAR HGB CONC 33.1 g/dL (32.4-35.8); MEAN PLATELET VOLUME 9.5 fL (7.4-10.4); MONOCYTES % (AUTO) 8 % (2-9); NEUTROPHILS % (AUTO) 77 % (42-75); PLATELET COUNT 96 x10^3/uL (130-400); RED BLOOD COUNT 2.84 x10^6/uL (3.82-5.3); RED CELL DISTRIBUTION WIDTH 15.4 % (9.6-15.2)
[2020-04-07 04:41] LABS: MD NO
[2020-04-07 04:49] LABS: ANION GAP 6 mmol/L (5-15); CALCIUM 8.1 mg/dL (8.5-10.1); CHLORIDE 114 mmol/L (98-107)
[2020-04-07 04:51] LABS: CREATININE 0.48 mg/dL (0.55-1.02)
[2020-04-07] MEDS ORDERED: POTASSIUM CHLORIDE 20 MEQ TAB.ER.PRT PO ONE (07:00)
[2020-04-07 08:00] VITALS: BP 134/93
[2020-04-07] MEDS: ENOXAPARIN 40 MG/0.4 ML SQ SCH (09:34)
[2020-04-07] MEDS ORDERED: PHENOBARBITAL ETOH DETOX PER PHARMACY MC PRN (09:59)
[2020-04-07] MEDS: QUETIAPINE 25MG TABLET PO SCH ×2 (10:11→21:37)
[2020-04-07] MEDS ORDERED: QUETIAPINE 25MG TABLET PO SCH (10:30)
[2020-04-07 10:50] VITALS: BP 145/97
[2020-04-07] MEDS: CEFTRIAXONE PMX 1GM/50ML 50 ML IV SCH (10:59)
[2020-04-07] MEDS: POTASSIUM CHLORIDE 20 MEQ, MAGNESIUM SULFATE 2 GM, THIAMINE 200 MG, MVI ADULT 10 ML, FO... IV SCH ×2 (11:44→22:16)
[2020-04-07 14:04] VITALS: BP 192/90
[2020-04-07 21:00] VITALS: BP 132/89
[2020-04-08 01:02] VITALS: BP 153/107
[2020-04-08] MEDS: ZIPRASIDONE 20 MG INJ IM PRN ×2 (01:45→22:43)
[2020-04-08] MEDS: PHENOBARBITAL SODIUM 65 MG/ML, 1ML IM SCH (03:17)
[2020-04-08 07:27] VITALS: BP 158/103
[2020-04-08] MEDS: ENOXAPARIN 40 MG/0.4 ML SQ SCH (10:00)
[2020-04-08] MEDS: QUETIAPINE 25MG TABLET PO SCH ×2 (10:06→20:02)
[2020-04-08] MEDS: POTASSIUM CHLORIDE 20 MEQ in LACTATED RINGERS 1,000 ML IV SCH ×2 (10:31→20:03)
[2020-04-08] MEDS: CEFTRIAXONE PMX 1GM/50ML 50 ML IV SCH (11:22)
[2020-04-08 13:23] VITALS: BP 146/97
[2020-04-08] MEDS: PHENOBARBITAL 20 MG/5 ML ORAL SOL PO SCH (15:18)
[2020-04-08] MEDS: LORazepam 2 MG/ML, 1ML IVPush PRN ×2 (18:06→21:27)
[2020-04-08 19:29] VITALS: BP 114/80
[2020-04-08] MEDS: THIAMINE 100MG TABLET PO SCH (20:03)
[2020-04-08 22:41] VITALS: BP 155/110
[2020-04-08] MEDS: OXYcodone IR 5MG TABLET PO PRN (22:42)
[2020-04-09] MEDS: LORazepam 2 MG/ML, 1ML IVPush PRN ×2 (00:19→05:23)
[2020-04-09 02:12] VITALS: BP 141/99
[2020-04-09] MEDS: PHENOBARBITAL 20 MG/5 ML ORAL SOL PO SCH ×2 (02:55→15:19)
[2020-04-09 05:20] VITALS: BP 148/105
[2020-04-09] MEDS: POTASSIUM CHLORIDE 20 MEQ in LACTATED RINGERS 1,000 ML IV SCH ×3 (05:34→20:11)
[2020-04-09 06:06] LABS: BASOPHILS % (AUTO) 1 % (0-1); EOSINOPHILS % (AUTO) 2 % (1-7); LYMPHOCYTES % (AUTO) 11 % (22-44); MEAN CORPUSCULAR HEMOGLOBIN 37.5 pg (27.0-34.8); MEAN CORPUSCULAR HGB CONC 33.4 g/dL (32.4-35.8); MEAN PLATELET VOLUME 10.1 fL (7.4-10.4); MONOCYTES % (AUTO) 13 % (2-9); NEUTROPHILS % (AUTO) 73 % (42-75); PLATELET COUNT 84 x10^3/uL (130-400); RED BLOOD COUNT 2.59 x10^6/uL (3.82-5.3)
[2020-04-09 06:09] LABS: MD NO
[2020-04-09 06:19] LABS: ANION GAP 8 mmol/L (5-15); CALCIUM 8.5 mg/dL (8.5-10.1); CHLORIDE 110 mmol/L (98-107); CREATININE 0.49 mg/dL (0.55-1.02)
[2020-04-09 06:20] LABS: ALANINE AMINOTRANSFERASE 35 U/L (12-78); ALBUMIN 2.7 g/dL (3.4-5.0)
[2020-04-09 06:22] LABS: ALKALINE PHOSPHATASE 270 U/L (45-117); BILIRUBIN,TOTAL 0.9 mg/dL (0.2-1.0); TOTAL PROTEIN 6.2 g/dL (6.4-8.2)
[2020-04-09] MEDS: ENOXAPARIN 40 MG/0.4 ML SQ SCH (10:00)
[2020-04-09 10:10] VITALS: BP 137/90
[2020-04-09] MEDS: POLYETHYLENE GLYCOL 17 GM PACKET PO PRN (10:24)
[2020-04-09] MEDS: QUETIAPINE 25MG TABLET PO SCH ×2 (10:24→20:12)
[2020-04-09] MEDS: OXYcodone IR 5MG TABLET PO PRN ×2 (10:24→17:27)
[2020-04-09] MEDS: FOLIC ACID 1 MG TABLET PO SCH (10:25)
[2020-04-09] MEDS: THIAMINE 100MG TABLET PO SCH ×2 (10:25→20:12)
[2020-04-09] MEDS: CEFTRIAXONE PMX 1GM/50ML 50 ML IV SCH (11:00)
[2020-04-09 15:23] VITALS: BP 131/90
[2020-04-09] MEDS: DOCUSATE 100 MG CAPSULE PO PRN (17:27)
[2020-04-09 19:22] VITALS: BP 129/95
[2020-04-10 00:40] VITALS: BP 135/90
[2020-04-10] MEDS: OXYcodone IR 5MG TABLET PO PRN ×3 (00:43→14:12)
[2020-04-10] MEDS: LORazepam 2 MG/ML, 1ML IVPush PRN ×3 (00:43→23:26)
[2020-04-10 01:14] VITALS: BP 136/88
[2020-04-10] MEDS: PHENOBARBITAL 20 MG/5 ML ORAL SOL PO SCH ×2 (01:33→14:10)
[2020-04-10 05:17] LABS: BASOPHILS % (AUTO) 1 % (0-1); EOSINOPHILS % (AUTO) 3 % (1-7); LYMPHOCYTES % (AUTO) 12 % (22-44); MEAN CORPUSCULAR HEMOGLOBIN 37.2 pg (27.0-34.8); MEAN CORPUSCULAR HGB CONC 33.2 g/dL (32.4-35.8); MEAN PLATELET VOLUME 10.1 fL (7.4-10.4); MONOCYTES % (AUTO) 18 % (2-9); NEUTROPHILS % (AUTO) 67 % (42-75); PLATELET COUNT 91 x10^3/uL (130-400); RED CELL DISTRIBUTION WIDTH 15.6 % (9.6-15.2)
[2020-04-10 05:26] LABS: ANION GAP 8 mmol/L (5-15); CALCIUM 8.5 mg/dL (8.5-10.1); CHLORIDE 111 mmol/L (98-107)
[2020-04-10 05:28] LABS: CREATININE 0.56 mg/dL (0.55-1.02)
[2020-04-10 05:29] LABS: MD NO
[2020-04-10 05:37] VITALS: BP 132/91
[2020-04-10] MEDS: POTASSIUM CHLORIDE 20 MEQ in LACTATED RINGERS 1,000 ML IV SCH (05:38)
[2020-04-10] MEDS: DOCUSATE 100 MG CAPSULE PO PRN (05:38)
[2020-04-10] MEDS: LACTATED RINGERS 1,000 ML IV SCH (06:45)
[2020-04-10 08:16] VITALS: BP 139/95
[2020-04-10] MEDS: QUETIAPINE 25MG TABLET PO SCH ×2 (08:52→20:42)
[2020-04-10] MEDS: FOLIC ACID 1 MG TABLET PO SCH (08:52)
[2020-04-10] MEDS: ENOXAPARIN 40 MG/0.4 ML SQ SCH (08:53)
[2020-04-10] MEDS: THIAMINE 100MG TABLET PO SCH ×2 (08:53→20:42)
[2020-04-10] MEDS: CEFTRIAXONE PMX 1GM/50ML 50 ML IV SCH (12:00)
[2020-04-10] MEDS: METOPROLOL SUCCINATE 25 MG TAB.ER.24H PO SCH ×2 (12:03→20:41)
[2020-04-10] MEDS ORDERED: GADOTERATE 7.5 MMOL/15 ML VIAL ONE (13:17)
[2020-04-10] MEDS: OMEPRAZOLE 20 MG CAPSULE.DR PO SCH (14:12)
[2020-04-10 15:29] VITALS: BP 136/90
[2020-04-10] MEDS: POLYETHYLENE GLYCOL 17 GM PACKET PO PRN (17:47)
[2020-04-10 18:49] VITALS: BP 135/97
[2020-04-11] MEDS: LACTATED RINGERS 1,000 ML IV SCH (01:06)
[2020-04-11] MEDS: PHENOBARBITAL 20 MG/5 ML ORAL SOL PO SCH (01:07)
[2020-04-11 01:10] VITALS: BP 139/95
[2020-04-11] MEDS: OXYcodone IR 5MG TABLET PO PRN (03:58)
[2020-04-11] MEDS: OMEPRAZOLE 20 MG CAPSULE.DR PO SCH ×2 (05:28→16:20)
[2020-04-11 06:02] LABS: BASOPHILS % (AUTO) 1 % (0-1); EOSINOPHILS % (AUTO) 3 % (1-7); LYMPHOCYTES % (AUTO) 16 % (22-44); MEAN CORPUSCULAR HEMOGLOBIN 37.3 pg (27.0-34.8); MEAN CORPUSCULAR HGB CONC 33.1 g/dL (32.4-35.8); MEAN PLATELET VOLUME 10.1 fL (7.4-10.4); MONOCYTES % (AUTO) 22 % (2-9); NEUTROPHILS % (AUTO) 58 % (42-75); PLATELET COUNT 106 x10^3/uL (130-400); RED BLOOD COUNT 2.27 x10^6/uL (3.82-5.3); RED CELL DISTRIBUTION WIDTH 15.7 % (9.6-15.2)
[2020-04-11 06:30] LABS: CHLORIDE 108 mmol/L (98-107)
[2020-04-11 06:32] LABS: MD NO
[2020-04-11 06:34] LABS: ANION GAP 8 mmol/L (5-15); CALCIUM 8.7 mg/dL (8.5-10.1); CREATININE 0.65 mg/dL (0.55-1.02)
[2020-04-11 07:14] VITALS: BP 132/90
[2020-04-11] MEDS: FOLIC ACID 1 MG TABLET PO SCH (09:57)
[2020-04-11] MEDS: THIAMINE 100MG TABLET PO SCH (09:57)
[2020-04-11] MEDS: METOPROLOL SUCCINATE 25 MG TAB.ER.24H PO SCH (09:58)
[2020-04-11] MEDS: ENOXAPARIN 40 MG/0.4 ML SQ SCH (09:58)
[2020-04-11] MEDS: QUETIAPINE 25MG TABLET PO SCH (09:58)
[2020-04-11] MEDS ORDERED: METO25TA91 PO (13:35)
[2020-04-11] MEDS ORDERED: LORA-446 PO (13:36)
[2020-04-11] MEDS ORDERED: PHENOBARBITAL 20 MG/5 ML ORAL SOL PO SCH (14:00)
[2020-04-11 14:10] VITALS: BP 107/76
== END 2020-04-11 17:55 | disposition home or self-care (01) | DRG 432 ==
LOC: ED 21:04 → EDIP 04-06 00:02 → CCU 04-06 17:51 → 5SO 04-07 10:17
PROVIDERS: ADMIT Internal Medicine; ATTEND Internal Medicine
DX: K70.10 Alcoholic hepatitis without ascites (principal); E43 Unspecified severe protein-calorie malnutrition; D61.818 Other pancytopenia; F10.239 Alcohol dependence with withdrawal, unspecified; D53.9 Nutritional anemia, unspecified; E16.2 Hypoglycemia, unspecified; Z68.24 Body mass index [BMI] 24.0-24.9, adult; E83.42 Hypomagnesemia; E86.0 Dehydration; F31.9 Bipolar disorder, unspecified; F41.9 Anxiety disorder, unspecified; J32.9 Chronic sinusitis, unspecified; K76.0 Fatty (change of) liver, not elsewhere classified; M48.04 Spinal stenosis, thoracic region; M50.30 Other cervical disc degeneration, unspecified cervical region; S09.90XA Unspecified injury of head, initial encounter; W18.39XA Other fall on same level, initial encounter; Y93.89 Activity, other specified; Y92.89 Other specified places as the place of occurrence of the external cause; Y99.8 Other external cause status; Z80.3 Family history of malignant neoplasm of breast; Z91.14 Patient's other noncompliance with medication regimen; Z81.8 Family history of other mental and behavioral disorders
CPT/HCPCS: 36415; 73590; 83036; J7042; 70450; 70486; 71045; 72125; 72128; 72131; 72157; 76705; 80048; 80053; 80061; 80307; 81001; 82306; 82607; 82962; 83690; 83735; 84100; 84439; 84443; 85025; 85610; 87081; 87086; 93005; 93306; G0378; J0696; J1650; J2405; J2550; J2560; J3411; J3475; J3480; J3486; Q0162; 92523-GN; A9575; J2060; J2270; J7030; J7040; J7050; J7120

== ENCOUNTER 2021-01-13 15:01 | Emergency (ER) | payer MEDICAID ==
[~2021-01-13] VITALS: Ht 165.1 cm; Wt 60.0 kg
[~2021-01-13 15:01] MED LIST changes: -FOLI-17 PO; +FOLI1TAB32 PO; +LORA-446 PO; +METO25TA91 PO
[2021-01-13 15:44] VITALS: BP 117/82
--- NOTE | 2021-01-13 16:06 | NUR ---
biba for MGLF at home at 1300, pt endorses ETOH use prior, unkown time/amount. pt denies LOC, blood thinners, any trauma, or midline cervical tenderness. pt uses personal cane at home after ankle fracture 4 months ago. per ems, pt was tearful and anxious upon arrival, hx of panic bipolar. 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 pt a&o, resps even and unlabored, vss, nadn. pt calm and cooperative.
--- NOTE | 2021-01-13 16:39 | NUR ---
pt refusing care at this time, took out IV with tip intact, took off all monitors, states "I did not come here by choice, I just want to go home". pt tearful but caml/cooperative, denies SI/HI. pt educated on leaving against medical advice, pt verbalized undertsanding. pt ambulatory to dc lobby with steady gait using personal cane, no complaints at time of discharge.
== END 2021-01-13 16:42 | disposition left against medical advice (07) ==
LOC: ED 15:30
DX: R00.0 Tachycardia, unspecified (principal); Z53.21 Procedure and treatment not carried out due to patient leaving prior to being seen by health care provider
CPT/HCPCS: 93005